=== PATIENT | female | born 1970 | race Two or more races ===

== ENCOUNTER 2017-06-13 09:08 | Emergency (ER) | payer SELFPAY ==
[~2017-06-13] VITALS: Ht 162.6 cm; Wt 56.7 kg
[2017-06-13 09:12] VITALS: BP 116/47
--- NOTE | 2017-06-13 09:20 | NUR ---
PRESENTS TO ER C/O LEFT ARM PAIN X 3 DAYS. DENIES ANY TRAUMA. TENDER TO TOUCH. A/OX 4. BREATHING EVEN AND UNLABORED. NO SOB. VITALS STABLE. SAFETY AND COMFORT MEASURES IN PLACE. MD AT BEDSIDE FOR EVAL.
[2017-06-13] MEDS ORDERED: IBUPROFEN 600 MG TABLET PO ONE ×2 (09:30→09:48)
--- NOTE | 2017-06-13 11:32 | NUR ---
PT. VERBALIZED UNDERSTANDING OF AFTERCARE INSTRUCTIONS.Patient discharged to home in stable condition. Written and verbal after care instructions given. Patient verbalizes understanding of instruction. Patient refuses ACI
== END 2017-06-13 11:34 | disposition home or self-care (01) ==
LOC: ER 09:14
DX: M25.512 Pain in left shoulder (principal); D64.9 Anemia, unspecified
CPT/HCPCS: 73030; 99284; A4606; Z7610